=== PATIENT | female | born 1995 ===

== ENCOUNTER 2017-09-06 01:55 | Inpatient (IN) | payer BC, MEDICAID ==
[2017-09-06 03:56] LABS: HEMATOCRIT 34.6 % (36.0-47.0); HEMOGLOBIN 11.6 g/dl (12.0-15.5); MEAN CORPUSCULAR HEMOGLOBIN 28.6 pg (27.0-33.0); MEAN CORPUSCULAR HGB CONC 33.5 g/dl (32.0-36.5); MEAN CORPUSCULAR VOLUME 85.4 fl (80.0-96.0); PLATELET COUNT, AUTOMATED 237 10^3/uL (150-450); RED BLOOD COUNT 4.05 10^6/uL (4.00-5.40); RED CELL DISTRIBUTION WIDTH 12.9 % (11.5-14.5); WHITE BLOOD COUNT 12.5 10^3/uL (4.0-10.0)
[2017-09-06] MEDS: LR 1,000 ML IV ×4 (04:02→18:49)
[2017-09-06] MEDS: PENICILLIN G POTASSIUM IV 5 MU in D5W MINI-BAG PLUS 100 ML IV (04:02)
[2017-09-06 04:12] LABS: AMPHETAMINES URINE REFLEX NEGATIVE (NEGATIVE); BARBITURATES URINE REFLEX NEGATIVE (NEGATIVE); BENZODIAZEPINES URINE REFLEX NEGATIVE (NEGATIVE); METHADONE URINE REFLEX NEGATIVE (NEGATIVE); OPIATES URINE REFLEX NEGATIVE (NEGATIVE); PHENCYCLIDINE URINE REFLEX NEGATIVE (NEGATIVE)
[2017-09-06 04:15] LABS: CANNABINOIDS URINE REFLEX PENDING CONFIRMATION (NEGATIVE)
[2017-09-06 04:16] LABS: COCAINE METABOLITE URINE REFLE PENDING CONFIRMATION (NEGATIVE)
[2017-09-06] MEDS: OXYTOCIN DRIP 30 UNITS in APPROPRIATE DILUENT 1 EA IV (06:19)
[2017-09-06 06:41] LABS: HBSAG L&D NEGATIVE (NEGATIVE)
[2017-09-06] MEDS: PENICILLIN G POTASSIUM IV 2.5 MU in APPROPRIATE DILUENT 1 EA IV ×4 (08:25→20:14)
[2017-09-06 10:26] LABS: HIV 1&2 SCREEN CENTAUR NEGATIVE (NEGATIVE)
[2017-09-06] MEDS: PROMETHAZINE INJ 25 MG/ML VIAL (J2550) IV (11:10)
[2017-09-06] MEDS ORDERED: FENTANYL 2MCG/ML ROPIVACAINE 0.2% IN 0.9% NACL 200ML IVBAG As Ordered (13:54)
[2017-09-06] MEDS ORDERED: NALOXONE INJ 0.4 MG/1 ML VIAL (J2310) IV (16:00)
[2017-09-06] MEDS ORDERED: REFRIGERATOR IV KEYS XX (16:00)
[2017-09-06] MEDS ORDERED: EPIDURAL COMMENT XX (16:00)
[2017-09-06] MEDS ORDERED: LACTATED RINGER'S 1000 ML IV (16:00)
[2017-09-06] MEDS ORDERED: EPIDURAL/PCA KEYS XX (16:00)
[2017-09-06] MEDS ORDERED: diphenhydrAMINE INJ 50MG/ML VIAL (J1200) IV (16:00)
[2017-09-06] MEDS ORDERED: FENTANYL/ROPIVACAINE/NACL BAG 200 ML EPIDURAL (16:00)
[2017-09-06] MEDS ORDERED: ePHEDrine SULFATE 25 MG/5 ML(5MG/ML) SYRINGE IV (16:00)
[2017-09-06] MEDS ORDERED: ONDANSETRON 4MG/2ML VIAL (J2405) IV (16:00)
[2017-09-06] MEDS ORDERED: UNASYN 3 GM VIAL As Ordered (22:33)
[2017-09-06] MEDS: AMPICILLIN SOD/SULBACTAM SOD 3 GM in D5W MINI-BAG PLUS 100 ML IV (22:43)
[2017-09-06] MEDS: ACETAMINOPHEN 500 MG TAB PO (22:43)
[2017-09-07] MEDS ORDERED: OXYTOCIN 30 UNITS IN 0.9% NaCl 500ML IV BAG (J2590) As Ordered (01:16)
[2017-09-07] MEDS: OXYTOCIN DRIP 30 UNITS in APPROPRIATE DILUENT 1 EA IV (01:28)
[2017-09-07] MEDS: miSOPROStol 200 MCG TAB (S0191) PR (01:33)
[2017-09-07] MEDS ORDERED: METHYLERGONOVINE MALEATE 0.2 MG TAB PO (02:00)
[2017-09-07] MEDS ORDERED: ANUSOL HC CREAM 30GM TOP (02:00)
[2017-09-07] MEDS ORDERED: DOCUSATE SODIUM 100 MG CAP PO (02:00)
[2017-09-07] MEDS ORDERED: IBUPROFEN 800 MG TAB PO (02:00)
[2017-09-07] MEDS ORDERED: PROMETHAZINE 25 MG TAB PO (02:00)
[2017-09-07] MEDS ORDERED: ACETAMINOPHEN 500 MG TAB PO (02:00)
[2017-09-07] MEDS: RHOGAM 300 MCG (1500 IU) INJ (J2790) IM (03:32)
[2017-09-07] MEDS: MEASLES,MUMPS,RUBELLA VACCINE INJ (MMR-II) (90707) SC (03:33)
[2017-09-07] MEDS: AMPICILLIN SOD/SULBACTAM SOD 3 GM in D5W MINI-BAG PLUS 100 ML IV (04:21)
[2017-09-07] MEDS: PRENATAL VITAMINS CHEWABLE TABLET PO (07:37)
[2017-09-07 18:54] LABS: ALT/SGPT 50 U/L (12-78); AST/SGOT 37 U/L (7-37); BILIRUBIN,TOTAL 0.2 MG/DL (0.2-1.0); CREATININE FOR GFR 0.51 MG/DL (0.55-1.30); LDH LACTATE DEHYDROGENASE 234 U/L (84-246)
[2017-09-07] MEDS: DIBUCAINE 1% OINTMENT 30GM TOP (21:00)
[2017-09-08] MEDS: PRENATAL VITAMINS CHEWABLE TABLET PO (07:56)
[2017-09-08] MEDS: MOM 30ML SUSPENSION UDC PO (14:34)
[2017-09-09] MEDS: PRENATAL VITAMINS CHEWABLE TABLET PO (07:52)
[2017-09-11 10:14] LABS: Cannabinoid Positive (.); Cocaine Positive (.); GC Benzoylecgon >3000 ng/mL (Cutoff=150); GC Carboxy THC 15 ng/mL (Cutoff=10)
== END 2017-09-09 12:55 | disposition home or self-care (01) | DRG 560 ==
LOC: M LDO 01:55 → M OBS 09-07 03:40 → M LDI 03:08
PROVIDERS: Specialist
PROC: 10E0XZZ Delivery of Products of Conception, External Approach (ICD-10-PCS; principal; 2017-09-07)
PROC: 0HQ9XZZ Repair Perineum Skin, External Approach (ICD-10-PCS; 2017-09-07)
DX: O41.1230 Chorioamnionitis, third trimester, not applicable or unspecified (principal); O70.0 First degree perineal laceration during delivery; Z37.0 Single live birth; Z3A.37 37 weeks gestation of pregnancy; Z86.19 Personal history of other infectious and parasitic diseases